=== PATIENT | male | born 1960 | race Caucasian/White ===

== ENCOUNTER 2020-11-23 22:56 | Emergency (ER) | payer OTHER, SELFPAY ==
--- NOTE | ~2020-11-23 | CT_ITS ---
EXAMINATION: CT facial & cervical spine wo DATE: 11/23/2020 23:41 INDICATION: Head injury. TECHNIQUE: Computed tomography (CT) of the maxillofacial region and cervical spine was performed with out intravenous contrast. Automated exposure control and iterative reconstruction technique were empl oyed. The dose-length product was 338.71 mGy-cm. COMPARISON: Head CT 10/21/2017 FINDINGS: MAXILLOFACIAL CT: There is left periorbital soft tissue swelling and soft tissue gas. There are fractures of the nasal bones and nasal processes of maxilla. There is rightward deviation of the nasal septum. There is a fr acture of floor of left orbit. There is mucosal thickening in the paranasal sinuses. There is hematom a in left maxillary sinus. There is gas and hematoma in the inferior aspect of left orbit. Left-sided proptosis is noted. The mastoid air cells are normal. CERVICAL SPINE CT: There is 2 mm anterolisthesis of C5 on C6 and 2 mm retrolisthesis of C6 on C7. Vertebral body heights are normal. There is moderately decreased disc height at C5-C6 and C6-C7. The following disc levels are specifically discussed: C2-C3: There is mild left uncovertebral joint osteoarthritis. There is moderate right and severe left facet joint osteoarthritis. There is mild left neural foraminal stenosis. There is no central canal stenosis. C3-C4: There is severe bilateral uncovertebral joint osteoarthritis. There is severe bilateral facet joint osteoarthritis. There is moderate bilateral neural foraminal stenosis. There is mild central ca nal stenosis. C4-C5: There is mild bilateral uncovertebral joint osteoarthritis. There is severe bilateral facet faith int osteoarthritis. There is mild bilateral neural foraminal stenosis. There is mild central canal st enosis. C5-C6: There is moderate bilateral uncovertebral joint osteoarthritis. There is moderate bilateral fa cet joint osteoarthritis. There is mild bilateral neural foraminal stenosis. There is mild central ca nal stenosis. C6-C7: There is severe bilateral uncovertebral joint osteoarthritis. There is mild right and severe l eft facet joint osteoarthritis. There is moderate right and mild left neural foraminal stenosis. Ther e is mild central canal stenosis. C7-T1: There is no uncovertebral joint osteoarthritis. There is moderate right and severe left facet joint osteoarthritis. There is mild left neural foraminal stenosis. There is no central canal stenosi s. IMPRESSION: 1. Acute fractures of the nasal bones, nasal processes of maxilla, and floor of left orbit. 2. Hematoma and gas in left orbit with left-sided proptosis. 3. Moderate cervical spondylosis. Reviewed, dictated and finalized at location A.
--- NOTE | ~2020-11-23 | CT_ITS ---
EXAMINATION: CT brain wo con DATE: 11/23/2020 23:41 INDICATION: Head injury. TECHNIQUE: Computed tomography (CT) of the head was performed without intravenous contrast. The mA wa s adjusted according to patient size. Iterative reconstruction technique was employed. The dose-lengt h product was 681.00 mGy-cm. COMPARISON: Head CT 10/21/2017 FINDINGS: There is no intracranial hemorrhage, acute infarction, or abnormal intracranial mass lesion . The ventricles are normal in size. There are fractures of the nasal bones and nasal processes of ma xilla. There is rightward deviation of the nasal septum. There is mucosal thickening in the paranasal sinuses. There is hematoma in left maxillary sinus. There is a fracture of floor of left orbit. Ther e is gas and hematoma in the inferior aspect of left orbit. There is left parietal soft tissue swelli ng with soft tissue gas. The mastoid air cells are normal. IMPRESSION: 1. Normal brain. 2. Facial bone fractures. Reviewed, dictated and finalized at location A.
[2020-11-23 23:01] VITALS: BP 144/93; PULSE 84; RESP 18; TEMP 37.1; O2SAT 100
--- NOTE | 2020-11-23 23:22 | ED.GENADULT ---
HPI - General Adult General Chief complaint: Fall Stated complaint: fell into concrete stairs Time Seen by Provider: 11/23/20 23:06 Source: patient and family History of Present Illness HPI narrative: Patient is a 60 y/o male complaining of swelling and laceration to left face. He state that he fell and hit his face on ceramic tile approximately 3 hours ago. He admits that he was drinking. He does not recall losing consciousness, however, family thought he lost consciousness. He states that his last Tetanus shot was in 2016. Related Data Home Medications Medication Instructions Recorded Confirmed candesartan 11/23/20 Allergies Allergy/AdvReac Type Severity Reaction Status Date / Time No Known Allergies Allergy Verified 11/24/20 00:06 Review of Systems Constitutional: Constitutional: Denies chills, Denies fever(s), Reports headache(s) and Denies weakness Eyes: Eyes: Denies blurry vision ENT: Reports headache(s) and Denies neck pain Cardiovascular: Cardiovascular: Denies chest pain and Denies dyspnea Respiratory: Respiratory: Denies cough and Denies dyspnea Gastrointestinal: Gastrointestinal: Denies abdominal pain, Denies diarrhea, Denies nausea and Denies vomiting Genitourinary: Genitourinary: Denies hematuria and Denies dysuria Musculoskeletal: Musculoskeletal: Denies back pain and Denies neck pain Neurologic: Reports headache(s) and Denies weakness [facility] Social History Social History Gender identity (if verbalized by the patient): Male Sexual Orientation (if Verbalized by the Patient): Straight or Heterosexual Exam Const: General: no acute distress and well developed Orientation/consciousness: oriented to person, oriented to place, oriented to time and patient oriented x3 HENMT: Head: normocephalic Ears: external ears normal General nose exam: Normal external nose present Face and sinus: ecchymosis, edema on the left, laceration (left face) and Facial tenderness on exam of face and sinuses Eyes: General: appearance normal, both eyes and all related structures Alignment and Position: alignment normal Conjunctivae: conjunctivae normal EOM: EOMs intact bilaterally Neck: Neck: normal visual inspection and full ROM Chest: Chest palpation & inspection: normal inspection of the chest and no tenderness Resp: Effort & Inspection: normal respiratory effort Auscultation: clear to auscultation bilaterally Cardio: Rate: regular rate Rhythm: regular rhythm GI: GI Palp: No abdominal tenderness and Yes Soft to palpation Skin: General skin exam: normal color and turgor normal Trauma: laceration (3 cm laceration left face) Neuro: General: oriented to person, oriented to place, oriented to time and patient oriented x3 Cognition (Neuro): normal cognition Extrem: General: normal to inspection, full ROM and no pedal edema Psych: Appearance: grossly normal Mental Status: mental status grossly normal Affect: normal affect Course Reevaluation(s) Reevaluation #1: I advised patient to be transferred to [place] or [facility] for trauma evaluation. However, patient refuses. He is awake, alert and competent to make medical decision for himself. His daughter states that she will take him to trauma center for further evaluation in the morning. Date: 11/24/20 Time: 00:20 Consultations Consultation #1: Discussed with Dr. Dhaliwal, who recommends transfer. Date: 11/24/20 Time: 00:17 Vital Signs Vital signs: Vital Signs Temperature 37.1 C 11/23/20 23:01 Pulse Rate 84 11/23/20 23:01 Respiratory Rate 18 11/23/20 23:01 Blood Pressure 144/93 H 11/23/20 23:01 Pulse Oximetry 100 11/23/20 23:01 Temperature 36.7 C 11/24/20 00:55 Pulse Rate 68 11/24/20 00:55 Respiratory Rate 14 11/24/20 00:55 Blood Pressure 122/78 11/24/20 00:55 Pulse Oximetry 100 11/24/20 00:55 Procedures Laceration Laceration 1: Date: 11/24/20 T
--- NOTE | 2020-11-23 23:55 | PC.NURSE ---
PT AMBULATORY OUT THE EMS DOORS AT THIS TIME. DAUGHTER IS ATTEMPTING TO GET HIM BACK INTO HIS ROOM. PT CURRENTLY REFUSING TO RETURN TO ER ROOM 09.
--- NOTE | 2020-11-24 00:01 | PC.NURSE ---
PT RETURNED TO ROOM WITH DAUGHTER PRESENT.
[2020-11-24] MEDS: TETANUS,DIPHTHERIA,AC PERTUSSIS ADULT (0.5 ML) BOOSTRIX IM (00:03)
[2020-11-24 00:06] VITALS: BP 120/79; PULSE 65; RESP 18; TEMP 36.7; O2SAT 100
[2020-11-24 00:55] VITALS: BP 122/78; PULSE 68; RESP 14; TEMP 36.7; O2SAT 100
== END 2020-11-24 00:57 | disposition left against medical advice (07) ==
PROVIDERS: Emergency Provider Emergency Medicine; PCP Family Medicine Adolescent Medicine
DX: S01.81XA Laceration without foreign body of other part of head, initial encounter (principal); S02.2XXA Fracture of nasal bones, initial encounter for closed fracture; S02.32XA Fracture of orbital floor, left side, initial encounter for closed fracture; Z23 Encounter for immunization; W01.198A Fall on same level from slipping, tripping and stumbling with subsequent striking against other object, initial encounter; M47.812 Spondylosis without myelopathy or radiculopathy, cervical region
CPT/HCPCS: 70450; 70486; 72125; 90471; 90715; 99285

== ENCOUNTER 2021-02-03 10:07 | Outpatient (CLI) | payer OTHER, SELFPAY ==
--- NOTE | 2021-02-03 12:00 | NEURO_ITS ---
Impression: # Complains of numbness of hands. # Severe left Carpal Tunnel Syndrome. # Evolving right Carpal Tunnel Syndrome. # Bilateral ulnar neuropathy, right more than left. # Abnormal needle/EMG exam. Nerve Conduction Studies Anti Sensory Summary Table Stim Site NR Peak (ms) P-T Amp (?V) Site1 Site2 Delta-P (ms) Dist (cm) Chris (m/s) Left Median Anti Sensory (2-3nd Digit) Wrist 7.7 13.9 Wrist 2-3nd Digit 7.7 14.0 18 Wrist 7.8 13.3 Wrist 2-3nd Digit 7.7 14.0 18 Right Median Anti Sensory (2-3nd Digit) Wrist 4.2 16.8 Wrist 2-3nd Digit 4.2 14.0 33 Wrist 5.7 8.2 Wrist 2-3nd Digit 4.2 14.0 33 Left Radial Anti Sensory (Base 1st Digit) Wrist 2.3 20.5 Wrist Base 1st Digit 2.3 0.0 Right Radial Anti Sensory (Base 1st Digit) Wrist 2.3 11.4 Wrist Base 1st Digit 2.3 0.0 Left Ulnar Anti Sensory (5th Digit) Wrist 2.7 33.6 Wrist 5th Digit 2.7 14.0 52 Right Ulnar Anti Sensory (5th Digit) Wrist 2.5 59.2 Wrist 5th Digit 2.5 14.0 56 Motor Summary Table Stim Site NR Onset (ms) O-P Amp (mV) Site1 Site2 Delta-0 (ms) Dist (cm) Chris (m/s) Left Median Motor (Abd Poll Brev) Wrist 6.0 1.4 Elbow Wrist 5.1 28.0 55 Elbow 11.1 1.7 Right Median Motor (Abd Poll Brev) Wrist 3.4 8.5 Elbow Wrist 4.7 26.0 55 Elbow 8.1 5.1 Left Ulnar Motor (Abd Dig Minimi) Wrist 2.5 6.2 A Elbow Wrist 5.8 27.0 47 A Elbow 8.3 4.5 B Elbow Wrist 3.5 20.0 57 B Elbow 6.0 2.0 Right Ulnar Motor (Abd Dig Minimi) Wrist 2.5 4.7 A Elbow Wrist 5.4 27.0 50 A Elbow 7.9 3.3 B Elbow Wrist 4.3 21.0 49 B Elbow 6.8 3.2 F Wave Studies NR F-Lat (ms) L-R F-Lat (ms) Left Median (Mrkrs) (Abd Poll Brev) 29.03 0.70 Right Median (Mrkrs) (Abd Poll Brev) 29.73 0.70 Left Ulnar (Mrkrs) (Abd Dig Min) 29.30 0.16 Right Ulnar (Mrkrs) (Abd Dig Min) 29.14 0.16 EMG Side Muscle Nerve Root Ins Act Fibs Amp Dur Recrt Comment Right 1stDorInt Ulnar C8-T1 Nml Nml Incr >12ms Reduced Right Ext Indicis Radial (Post Int) C7-8 Nml Nml Nml Nml Nml Right Ext Digitorum Radial (Post Int) C7-8 Nml Nml Nml Nml Nml Right BrachioRad Radial C5-6 Nml Nml Nml Nml Nml Right PronatorTeres Median C6-7 Nml Nml Nml Nml Nml Right Abd Poll Brev Median C8-T1 Nml Nml Nml Nml Nml Left 1stDorInt Ulnar C8-T1 Nml Nml Nml Nml Nml Left Ext Indicis Radial (Post Int) C7-8 Nml Nml Nml Nml Nml Left Ext Digitorum Radial (Post Int) C7-8 Nml Nml Nml Nml Nml Left BrachioRad Radial C5-6 Nml Nml Nml Nml Nml Left PronatorTeres Median C6-7 Nml Nml Nml Nml Nml Left Abd Poll Brev Median C8-T1 Nml Nml Incr >12ms Reduced Right ABD Dig Min Ulnar C8-T1 Nml Nml Incr >12ms Reduced Left ABD Dig Min Ulnar C8-T1 Nml Nml Nml Nml Nml MTDD
== END 2021-02-03 10:08 | disposition home or self-care (01) ==
LOC: ANHNEURO 10:11
PROVIDERS: PCP Family Medicine Adolescent Medicine; Visit Provider Family Medicine Adolescent Medicine
DX: G56.03 Carpal tunnel syndrome, bilateral upper limbs (principal); G56.23 Lesion of ulnar nerve, bilateral upper limbs
CPT/HCPCS: 95886; 95911

== ENCOUNTER → 2022-12-22 07:43 | Outpatient (CLI) | payer OTHER, SELFPAY ==
--- NOTE | ~2022-12-22 | MM_ITS ---
EXAMINATION: MM diagnostic evelia RT w kori HISTORY: Tender retroareolar right breast lump TECHNIQUE: ML and CC 3-D tomosynthesis images of the right breast were performed and synthetic 2-D im ages were generated. Comparison MLO Tomosynthesis images of left breast. CAD analysis was submitted a nd interpreted. COMPARISON: None BREAST PARENCHYMAL COMPOSITION: There are scattered areas of fibroglandular density. FINDINGS: There is unilateral right gynecomastia with up to approximately 2 cm deep, 3.1 cm wide and 3.5 cm vertical dimension thyroiditis stroma in the retroareolar area of the right breast. No suspici ous mass, architectural distortion, suspicious microcalcifications, skin thickening or retraction is detected. There is no gynecomastia or breast mass identified on the left. IMPRESSION: Right gynecomastia; no evidence of malignancy BI-RADS Category 2: Benign finding(s). Reviewed, dictated and finalized at location A.
== END ==
PROVIDERS: PCP Family Medicine Adolescent Medicine; Visit Provider Nurse Practitioner Family
DX: N62 Hypertrophy of breast (principal)
CPT/HCPCS: 77061; 77065; G0279

== ENCOUNTER 2023-02-06 08:00 | Outpatient (NON) | payer OTHER, SELFPAY | END 2023-02-06 08:01 | disposition home or self-care (01) | LOC: ANHLAB 02-07 07:31 | PROVIDERS: PCP Family Medicine Adolescent Medicine; Visit Provider Internal Medicine Gastroenterology | DX: Z12.11 Encounter for screening for malignant neoplasm of colon (principal) | CPT/HCPCS: 88305 ==

== ENCOUNTER 2023-02-06 09:19 | Day surgery (SDC) | payer OTHER, SELFPAY ==
[2023-01-17 09:19] VITALS: BMI 22.7
--- NOTE | 2023-02-03 15:03 | WPDANESEPPF ---
Anes - Initial Pre Proc Eval Procedure: Operation Date: 02/06/23 12:30 Proposed Procedures p Screening Colonoscopy - Dale Syed MD Date/Time: 02/03/23 15:03 Surgeon: Dale Syed MD Pre Op Diagnosis: Neoplasm Screening Patient Data Age: 62 Gender: M Height: 1.65 m Weight: 62 kg Allergies Allergy/AdvReac Type Severity Reaction Status Date / Time No Known Allergies Allergy Verified 01/17/23 09:15 Home Medications Medication Instructions Recorded Confirmed Type candesartan 32 mg tablet 32 mg PO DAILY #90 tabs 08/15/22 01/17/23 Rx sodium,potassium,mag sulfates 17.5 See Rx Instructions PO .COMPLEX 01/05/23 01/17/23 Rx gram-3.13 gram-1.6 gram oral soln #354 mL (Suprep Bowel Prep Kit) Patient hx anesthesia problems: none Family hx anesthesia problems: none Results Review: All pre-operative results and documents have been reviewed as part of the pre-operative evaluation. [facility] Past Medical History Medical History Hypertension Surgical History Surgical History History of carpal tunnel surgery of left wrist History of carpal tunnel surgery of right wrist History of hernia repair Family History Family History Father Liver cancer Mother Diabetes mellitus Hypertension Social History Social History Smoking packs per day: 5 Smoking cigarettes per day: 100.0 Years smoked: 20 Smoking pack-years: 100.00 Smoking status: Current every day smoker Tobacco type: cigarettes Second hand tobacco smoke exposure: Yes Alcohol intake: current Drinks per week: 12 Substance use: never Substance use type: does not use Living arrangements: with family Occupation/Education: occupation Gender identity (if verbalized by the patient): Male Sexual Orientation (if Verbalized by the Patient): Straight or Heterosexual Spiritual care concerns: No Agree to blood products: Yes Anes - Eval Final PreProcedure Day of Procedure 02/03/23 15:03 Patient weight: normal Heart: regular rate and rhythm Lungs: clear to auscultation and normal air movement Airway: Mallampati scale class II Neurological: alert and oriented Last oral intake: >/= 8 hours ASA classification: II Emergent: no Anesthetic plan: proceed Anesthesia type and monitoring: general GIVS Results Review: All pre-operative results and documents have been reviewed as part of the pre-operative evaluation. Informed Consent: The patient's anesthetic plan and its attendant risks and benefits were discussed with the patient/family/POA. Questions were solicited and answers provided to the satisfaction of the patient/family/POA.
[2023-02-06 11:23] VITALS: BP 136/80; PULSE 66; RESP 16; TEMP 37.1; O2SAT 100
--- NOTE | 2023-02-06 11:34 | PM.HPGS ---
History of Present Illness History of Present Illness Consent: Risks, benefits, and alternatives have been discussed and questions answered. Patient agrees to proceed with procedure. Chief complaint: History of colon polyp Narrative: Dale Allison is a 62 year old male Presents for screening colonoscopy. patient has a history of colon polyp previous colonoscopy in 2012. They were adenomatous at that time. Patient's family history is significant this sister has had colon polyps. His father had liver cancer of uncertain primary. Patient presents today for neoplasia screening. Review of Systems Review of Systems: Review of systems noncontributory. [facility] Past Medical History Medical History Hypertension Surgical History Surgical History History of carpal tunnel surgery of left wrist History of carpal tunnel surgery of right wrist History of hernia repair Family History Family History Father Liver cancer Mother Diabetes mellitus Hypertension Social History Social History Smoking packs per day: 5 Smoking cigarettes per day: 100.0 Years smoked: 20 Smoking pack-years: 100.00 Smoking status: Current every day smoker Tobacco type: cigarettes Second hand tobacco smoke exposure: Yes Alcohol intake: current Drinks per week: 12 Substance use: never Substance use type: does not use Living arrangements: with family Occupation/Education: occupation Gender identity (if verbalized by the patient): Male Sexual Orientation (if Verbalized by the Patient): Straight or Heterosexual Spiritual care concerns: No Agree to blood products: Yes Meds Home Medications and Allergies Home Medications Medication Instructions Recorded Confirmed Type candesartan 32 mg tablet 32 mg PO DAILY #90 tabs 08/15/22 02/06/23 Rx sodium,potassium,mag sulfates 17.5 See Rx Instructions PO .COMPLEX 01/05/23 02/06/23 Rx gram-3.13 gram-1.6 gram oral soln #354 mL (Suprep Bowel Prep Kit) Allergies Allergy/AdvReac Type Severity Reaction Status Date / Time No Known Allergies Allergy Verified 02/06/23 11:18 Vital Signs Vital Signs - 24 hr 02/06/23 11:23 Temperature 98.7 F Pulse Rate 66 Respiratory Rate 16 Blood Pressure 136/80 Pulse Oximetry 100 Oxygen Delivery Room Air Exam Narrative: Physical exam reveals patient to be alert. Vital signs stable. HEENT exam is unremarkable. Patient is anicteric. Lungs are clear to auscultation and percussion. Heart is without murmur or extra sounds. Abdomen bowel sounds are present soft nontender with no organomegaly. Digital external rectal exam is normal. Assessment and Plan Assessment and plan (1) History of colon polyps: Code(s): Z86.010 - Personal history of colonic polyps Status: Acute Assessment and Plan: Patient has a personal history of colon polyps in the past. Further recommendations will be given after colonoscopy.
[2023-02-06] MEDS: LACTATED RINGERS 1,000 ML 150 ML IV CONT (11:42)
[2023-02-06 12:45] VITALS: BP 116/87; PULSE 53; RESP 16; O2SAT 99
[2023-02-06 12:55] VITALS: BP 82/52; PULSE 53; RESP 16; O2SAT 97
[2023-02-06 13:05] VITALS: BP 101/64; PULSE 60; RESP 16; O2SAT 98
--- NOTE | 2023-02-06 14:22 | WPDANESPN ---
Anes - Prog Note Post-Op Date/Time: 02/06/23 14:22 Cardiovascular status: normal Respiratory status: normal Airway patency: baseline Mental status: baseline Post-Op hydration status: normal Vital Signs: Last Vital Signs Temp 37.1 C 02/06/23 11:23 Pulse 60 02/06/23 13:05 Resp 16 02/06/23 13:05 BP 101/64 02/06/23 13:05 Pulse Ox 98 02/06/23 13:05 O2 Del Method Room Air 02/06/23 13:05 Pain Score (VAS): 0 I/O: Intake & Output 02/05/23 02/06/23 02/06/23 23:59 07:59 15:59 Intake Total 900 Balance 900 Post-procedural complaints: none Patient Feedback: Patient satisfied with anesthetic care.
== END 2023-02-06 13:25 | disposition home or self-care (01) ==
PROVIDERS: PCP Family Medicine Adolescent Medicine; Visit Provider Internal Medicine Gastroenterology
PROC: 0DJD8ZZ Inspection of Lower Intestinal Tract, Via Natural or Artificial Opening Endoscopic (ICD-10-PCS; CPT 45378; principal; 2023-02-06 12:30)
DX: Z86.010 Personal history of colon polyps (principal)
CPT/HCPCS: 45380